=== PATIENT | female | born 1940 | race Caucasian/White ===

== ENCOUNTER 2020-04-03 09:55 | Outpatient (CLI) | payer MEDICARE, SELFPAY ==
--- NOTE | ~2020-04-03 | XR_ITS ---
EXAMINATION: XR hand RT min 3V DATE: 04/03/2020 10:21 INDICATION: Right hand pain. TECHNIQUE: 3 views of right hand were obtained. COMPARISON: None. FINDINGS: Bone alignment is normal. No fracture. There is mild osteoarthritis of first carpometacarpa l joint, second and third metacarpophalangeal joints, and many of the interphalangeal joints. There i s severe osteoarthritis of first interphalangeal joint and second and third distal interphalangeal stephen ints and moderate osteoarthritis of fifth distal interphalangeal joint. IMPRESSION: 1. Polyarticular osteoarthritis. Reviewed, dictated and finalized at location E.
--- NOTE | ~2020-04-03 | CT_ITS ---
EXAMINATION: CT knee RT wo con DATE: 04/03/2020 11:01 INDICATION: Right knee pain and instability TECHNIQUE: High resolution computed tomography (CT) of the right knee was performed without intraveno us contrast. Additional sagittal and coronal reconstructions were performed. Automated exposure contr ol and iterative reconstruction technique were employed. The dose-length product was 394.30 mGy-cm. COMPARISON: 04/26/2005 FINDINGS: Old healed fracture of the proximal tibia with lateral plate and screw fixation. No evident instrumen tation failure or surrounding lucency to suggest loosening or infection. There is a mild residual ret icular cortical contour along the articular surface of the lateral tibial plateau. There is also like ly secondary osseous fusion across the proximal tibiofibular joint. Mild tricompartmental osteoarthri tis at the right knee. There are couple small loose osteochondral bodies at the posterior aspect of t he intercondylar eminence which appears situated between the expected course of the anterior cruciate and posterior cruciate ligaments. Small amount of heterotopic ossification along the proximal medial collateral ligament (Sachin-Stieda lesion) consistent with chronic medial collateral ligament sp rain. Small knee joint effusion at the suprapatellar pouch. The musculature about the knee in the dis laura thigh and proximal calf appears unremarkable. IMPRESSION: 1. Mild tricompartmental osteoarthritis at the right knee, likely secondary to old healed internally fixed fracture of the proximal tibia with mild residual irregular cortical contour at the lateral tib ial plateau. 2. Likely reactive small right knee joint effusion. 3. Sachin-Stieda lesion with small heterotopic ossicles along the proximal medial collateral liga ment consistent with sequela of chronic sprain. Reviewed, dictated and finalized at location A. IMPRESSION: 1. Mild tricompartmental osteoarthritis at the right knee, likely secondary to old healed internally fixed fracture of the proximal tibia with mild residual i rregular cortical contour at the lateral tibial plateau. 2. Likely reactive small right knee joint effusion. 3. Sachin-Stieda lesion with small heterotopic ossicles along the proximal medial collateral ligament consistent with sequela of chronic sprain.
[2020-04-03 11:45] LABS: Basophils Percent Auto 0.4 % (0.2-1.2); Eosinophils Absolute Auto 0.1 K/mm3 (0-0.3); Eosinophils Percent Auto 2.2 % (0-4.4); Hematocrit 37.7 % (37.0-47.0); Immature Granulocyte Absolute 0.02 K/mm3 (0.00-0.031); Immature Granulocyte Percent A 0.4 % (0-0.5); Lymphocytes Absolute Auto 1.44 K/mm3 (0.9-3.2); Lymphocytes Percent Auto 29.4 % (18.3-44.2); Mean Corpuscular HGB Conc 31.8 g/dl (32-36); Mean Corpuscular Hemoglobin 29.5 pg (26-34); Mean Corpuscular Volume 92.6 fl (80-100); Mean Platelet Volume 10.6 fl (7.4-10.4); Monocytes Absolute Auto 0.4 K/mm3 (0.1-0.6); Neutrophils Absolute Auto 2.9 K/mm3 (1.3-6.7); Neutrophils Percent Auto 58.6 % (45.5-73.1); Platelet Count Result 151 k/mm3 (150-375); Red Blood Count 4.07 M/mm3 (4.2-5.4); Red Cell Distribution Width 14.8 % (11.5-14.5); White Blood Count 4.9 K/mm3 (4.5-10.0)
[2020-04-06 09:44] LABS: EBV Nuclear Ab Interpretation Recent; EBV Virus Capsid Ag IgG Ab >750.00 U/mL (<18.00)
== END 2020-04-03 09:56 | disposition home or self-care (01) ==
PROVIDERS: PCP Family Medicine; Visit Provider Family Medicine
DX: M17.11 Unilateral primary osteoarthritis, right knee (principal); M19.041 Primary osteoarthritis, right hand
CPT/HCPCS: 36415; 73130; 73700; 85025; 86664; 86665

== ENCOUNTER 2021-08-11 15:44 | Outpatient (CLI) | payer MEDICARE, SELFPAY ==
--- NOTE | ~2021-08-11 | MM_ITS ---
EXAMINATION: MM screening [facility] HISTORY: Screening TECHNIQUE: Craniocaudal and mediolateral oblique 3-D tomosynthesis images were obtained and synthetic 2-D images were generated. CAD analysis was submitted and interpreted. COMPARISON: Comparison to multiple prior studies sequentially, with oldest reviewed study dated 07/03. BREAST PARENCHYMAL COMPOSITION: There are scattered areas of fibroglandular density. FINDINGS: There is no evidence of suspicious mass, calcification, or architectural distortion to sugg est malignancy in either breast. There has been no suspicious interval change. IMPRESSION: 1. No mammographic evidence of malignancy. 2. Recommend routine screening mammography in one year. BI-RADS Category 1: Negative Reviewed, dictated and finalized at location A.
== END 2021-08-11 15:45 | disposition home or self-care (01) ==
LOC: ANHIMG 15:49
PROVIDERS: PCP Family Medicine; Visit Provider Family Medicine
DX: Z12.31 Encounter for screening mammogram for malignant neoplasm of breast (principal)
CPT/HCPCS: 77063; 77067

== ENCOUNTER 2023-05-31 14:05 | Outpatient (CLI) | payer MEDICARE, SELFPAY ==
--- NOTE | ~2023-05-31 | MM_ITS ---
EXAMINATION: MM screening [facility] [place] [facility] [place] HISTORY: Screening TECHNIQUE: Craniocaudal and mediolateral oblique 3-D tomosynthesis images were obtained and synthetic 2-D images were generated. CAD analysis was submitted and interpreted. COMPARISON: Comparison to multiple prior studies sequentially, with oldest reviewed study dated 09/14. BREAST PARENCHYMAL COMPOSITION: Breast composed of scattered areas of fibroglandular density FINDINGS: There is no evidence of suspicious mass, calcification, or architectural distortion to sugg est malignancy in either breast. There has been no suspicious interval change. IMPRESSION: 1. No mammographic evidence of malignancy. 2. Recommend routine screening mammography in one year. BI-RADS Category 1: Negative Reviewed, dictated and finalized at location A.
== END 2023-05-31 14:06 | disposition home or self-care (01) ==
PROVIDERS: PCP Family Medicine; Visit Provider Family Medicine
DX: Z12.31 Encounter for screening mammogram for malignant neoplasm of breast (principal)
CPT/HCPCS: 77063; 77067

== ENCOUNTER 2023-10-16 11:31 | Outpatient (CLI) | payer MEDICARE, SELFPAY ==
[2023-10-16 12:14] LABS: Basophils Percent Auto 0.8 % (0.2-1.2); Eosinophils Absolute Auto 0.3 K/mm3 (0-0.3); Eosinophils Percent Auto 6.3 % (0-4.4); Hematocrit 35.1 % (37.0-47.0); Hemoglobin 11.1 g/dL (12.0-15.0); Immature Granulocyte Absolute 0.02 K/mm3 (0.00-0.031); Immature Granulocyte Percent A 0.4 % (0-0.5); Lymphocytes Percent Auto 25.3 % (18.3-44.2); Mean Corpuscular HGB Conc 31.6 g/dl (32-36); Mean Corpuscular Hemoglobin 29.4 pg (26-34); Mean Corpuscular Volume 93.1 fl (80-100); Mean Platelet Volume 10.6 fl (7.4-10.4); Monocytes Absolute Auto 0.5 K/mm3 (0.1-0.6); Monocytes Percent Auto 10.9 % (2.6-8.5); Neutrophils Absolute Auto 2.7 K/mm3 (1.3-6.7); Neutrophils Percent Auto 56.3 % (45.5-73.1); Platelet Count Result 185 k/mm3 (150-375); Red Blood Count 3.77 M/mm3 (4.2-5.4); Red Cell Distribution Width 13.3 % (11.5-14.5); White Blood Count 4.8 K/mm3 (4.5-10.0)
[2023-10-16 12:27] LABS: Alanine Aminotransferase 15 U/L (6-35); Albumin Level 4.3 g/dL (3.5-5.1); Alkaline Phosphatase 103 U/L (38-126); Amylase 116 U/L (30-110); Anion Gap 11 mmol/L (8-16); Aspartate Amino Transferase 28 U/L (14-36); Bilirubin,Total 0.6 mg/dL (0.2-1.3); Blood Urea Nitrogen 19 mg/dL (7-17); Calcium 9.7 mg/dL (8.4-10.2); Carbon Dioxide 24 mmol/L (22-30); Chloride 103 mmol/L (98-107); Estimated Glomerular Filt Rate 43; Glucose 92 mg/dL (65-110); Lipase 161 U/L (23-300); Potassium 4.2 mmol/L (3.4-5.0); Sodium 138 mmol/L (137-145)
== END 2023-10-16 11:32 | disposition home or self-care (01) ==
PROVIDERS: PCP Family Medicine; Visit Provider Physician Assistant
DX: R10.9 Unspecified abdominal pain (principal); R11.10 Vomiting, unspecified; R19.7 Diarrhea, unspecified; R00.1 Bradycardia, unspecified
CPT/HCPCS: 36415; 80053; 82150; 83690; 85025

== ENCOUNTER 2023-10-25 09:24 | Outpatient (CLI) | payer MEDICARE, SELFPAY ==
--- NOTE | ~2023-10-25 | CT_ITS ---
CT of the Abdomen and Pelvis: Indication: Abdominal pain Technique: 2.5 mm axial scans were obtained through the abdomen and pelvis following intravenous adm inistration of 100 cc of Omnipaque 350. Dose reduction technique was used on this scan by utilizing a utomated exposure control and iterative reconstruction technique. The dose-length product (DLP) was 2 68.92 mGy-cm. Findings: Scans through the lung bases are unremarkable. The liver, spleen, pancreas, adrenals and kidneys are within normal limits. Cholecystectomy clips are present. No evidence of aortic aneurysm. No lymphadenopathy. No bowel obstruction or bowel wall thickening. There is no evidence to suggest acute appendicitis. Images through the pelvis were performed. Urinary bladder unremarkable. No pelvic mass seen. No ascit es. Impression: No significant abnormalities seen. Reviewed, dictated and finalized at [facility]. DUSTER Impression: No significant abnormalities seen.
== END 2023-10-25 09:25 | disposition home or self-care (01) ==
PROVIDERS: PCP Family Medicine; Visit Provider Physician Assistant
DX: R19.7 Diarrhea, unspecified (principal); R74.8 Abnormal levels of other serum enzymes
CPT/HCPCS: 74177; Q9967

== ENCOUNTER 2024-05-27 08:50 | Outpatient (CLI) | payer MEDICARE, SELFPAY ==
--- NOTE | 2024-05-27 18:30 | WPDPFTINT ---
PFT Procedure Performed PFT Procedure Performed Plethysmography (Lung Vol) Diffusing Cap (DLCO) Flow Vol Loop Spirometry w/o Bronchodil PFT Interpretation DOS: 05/27/2024 REQUESTING: Dr Flynn REASON FOR TESTING: Shortness of breath PULMONARY FUNCTION TESTS Results are reliable and reproducible. Repeatability of spirometry FEV1 maneuver is Grade A. Spirometry: The FEV1 is 1.31 L, 64%, mildly decreased. The FVC is 2.07 L, 76%, normal. The FEV1/FVC ratio is 63%, normal. No bronchodilator was given. Lung volumes: The total lung capacity is 4.92 L, 91%, normal. The residual volume is 2.72 L, 81%, normal. The RV/TLC is 55%, normal range. Airway resistance is increased. Diffusion: DLCO is 8.8, 44%, decreased. The DLCO/VA is 2.82, 70%, low end of normal. Flow volume loop: The flow volume loop is unremarkable. IMPRESSION: Mild obstructive ventilatory impairment, normal lung volumes, severe diffusion impairment which normalizes with alveolar volume. No prior studies for comparison. The low DLCO is the most significant finding and is out of proportion to other abnormalities. Isolated decrease in diffusion can be seen in anemia, early interstitial lung disease, and pulmonary vascular disease among other conditions. Consider 6 minute walk and chest imaging, starting with CXR. Robina Aguila MD
== END 2024-05-27 08:51 | disposition home or self-care (01) ==
LOC: ANHPFT 08:50
PROVIDERS: PCP Family Medicine; Visit Provider Internal Medicine Cardiovascular Disease
DX: R91.8 Other nonspecific abnormal finding of lung field (principal); Z87.891 Personal history of nicotine dependence
CPT/HCPCS: 94375; 94726; 94729

== ENCOUNTER 2025-08-20 13:30 | Outpatient (CLI) | payer MEDICARE, SELFPAY | END 2025-08-20 13:31 | disposition home or self-care (01) | LOC: ANHAUDASC 13:30 | PROVIDERS: PCP Family Medicine; Visit Provider Student in an Organized Health Care Education/Training Program | DX: H90.3 Sensorineural hearing loss, bilateral (principal); H93.93 Unspecified disorder of ear, bilateral | CPT/HCPCS: 92557; 92567 ==